=== PATIENT | female | born 1960 | race Caucasian/White ===

== ENCOUNTER → 2020-04-08 | Outpatient (CLI) | payer OTHER | LOC: SLEEP 04-05 10:35 | DX: G47.33 Obstructive sleep apnea (adult) (pediatric) (principal); K21.9 Gastro-esophageal reflux disease without esophagitis; J32.4 Chronic pansinusitis; R05 Cough; I35.1 Nonrheumatic aortic (valve) insufficiency; G25.81 Restless legs syndrome | CPT/HCPCS: 95810 ==

== ENCOUNTER → 2020-11-19 | Outpatient (CLI) | payer OTHER | LOC: EXRD 09:44 | DX: M25.50 Pain in unspecified joint (principal) | CPT/HCPCS: 73130; 73630 ==